=== PATIENT | female | born 1945 | race Caucasian/White ===

== ENCOUNTER 2020-11-27 23:04 | Inpatient (IN) ==
[2020-11-27] MEDS ORDERED: fentaNYL CITRATE/PF 50 MCG/ML AMPUL IV ONE (23:08)
[2020-11-27 23:24] LABS: Anion Gap 11.1 mmol/L (6.8-13.8); BUN/Creatinine Ratio 18.3 (9.0-21.6); Calcium * 8.9 mg/dL (7.9-10.9); Carbon Dioxide 29.1 mmol/L (24-32.6); Estimated Creat Clear 22.7; Potassium 3.2 mmol/L (3.4-4.6)
[2020-11-27 23:25] LABS: Prothrombin Time (Patient) 18.7 Seconds (9.1-10.7)
[2020-11-27 23:26] LABS: Hematocrit 34.6 % (37.0-47.0); Hemoglobin 10.9 gm/dL (12.5-16.0); INR 1.94 INR (0.92-1.08); Mean Cell Volume 89.9 fl (78-100); Mean Corpuscular Hemoglobin 28.3 pg (27-31); Mean Corpuscular Hgb Conc 31.5 g/dl (32-36); Mean Platelet Volume 8.7 fl (8-12.5); Neutrophil # 6.2 K/mm3 (1.3-6.0); Neutrophil % 70.6 % (42-75.0); Platelet Count 288 K/mm3 (150-450); Red Blood Count 3.85 M/mm3 (4.2-5.4); Red Cell Distribution Width 14.5 % (11.5-14.0); White Blood Count 8.8 K/mm3 (4.0-10.5)
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
[2020-11-27] MEDS ORDERED: HYDROmorphone HCL 1 MG/ML DISP.SYRIN IV ONE (23:47)
[2020-11-28] MEDS: RINGER'S SOLUTION,LACTATED 1,000 ML IV PRN ×3 (02:27→15:50)
[2020-11-28] MEDS: HYDROmorphone HCL 1 MG/ML DISP.SYRIN IV PRN ×8 (02:28→14:13)
[2020-11-28] MEDS ORDERED: TRANEXAMIC ACID 1,000 MG in NORMAL SALINE 100 ML IV PRN (06:00)
[2020-11-28] MEDS ORDERED: CLINDAMYCIN IN 0.9 % SOD CHLOR 900 MG/50 ML BAG IV PRN (06:00)
--- NOTE | 2020-11-28 09:25 | ANES ---
Anesthesia Pre Procedure Eval Vitals/Labs: Last Vital Signs Temp 37.3 C 11/28/20 08:36 Pulse 80 11/28/20 08:36 Resp 16 11/28/20 08:36 BP 136/80 11/28/20 08:36 Pulse Ox 95 11/28/20 08:36 HOME MEDICATIONS ascorbic acid (vitamin C) 500 mg tablet 500 mg PO DAILY 02/11/19 [Last Taken Unknown] cholecalciferol (vitamin D3) 25 mcg (1,000 unit) tablet 1,000 unit PO DAILY 02/11/19 [Last Taken Unknown] ferrous gluconate 324 mg (38 mg iron) tablet 324 mg PO DAILY 02/11/19 [Last Taken Unknown] warfarin 4 mg tablet 4 mg PO .QSUNDAY tab 02/11/19 [Last Taken 11/27/20 21:00] magnesium 250 mg tablet 250 mg PO BID tab 10/23/19 [Last Taken Unknown] Bifidobacterium infantis 4 mg capsule 4 mg PO DAILY 03/15/20 [Last Taken Unknown] calcium carbonate-vitamin D3 500 mg (1,250 mg)-600 unit tablet 1 tab PO DAILY tab 03/15/20 [Last Taken Unknown] warfarin 3 mg tablet 3 mg PO DAILY #90 tab 07/01/20 [Last Taken 11/26/20 21:00] amlodipine 2.5 mg tablet 2.5 mg PO DAILY #90 tab 08/04/20 [Last Taken Unknown] simvastatin 20 mg tablet 20 mg PO HS #90 tab 08/04/20 [Last Taken Unknown] Allergies/Adverse Reactions: Allergies Allergy/AdvReac Type Severity Reaction Status Date / Time propoxyphene Allergy cardiac Verified 11/27/20 23:14 arrhythmia and hives codeine AdvReac Unknown Hives Verified 11/27/20 23:14 nitrofurantoin AdvReac Unknown flushed Verified 11/27/20 23:14 skin cephalexin AdvReac palpitation Verified 11/27/20 23:14 s hydralazine AdvReac palpitation Verified 11/27/20 23:14 s hydrocodone AdvReac palpiitatio Verified 11/27/20 23:14 [From Lorcet (hydrocodone)] ns methylprednisolone AdvReac palpitation Verified 11/27/20 23:14 s oxycodone AdvReac palpitation Verified 11/27/20 23:14 s prednisone AdvReac palpitation Verified 11/27/20 23:14 s procaine AdvReac palpitation Verified 11/27/20 23:14 s sulfamethoxazole AdvReac palpitation Verified 11/27/20 23:14 [From Bactrim] s tegaserod AdvReac Diarrhea, Verified 11/27/20 23:14 flushing, and dry mouth tolterodine AdvReac nausea & Verified 11/27/20 23:14 vomiting trimethoprim [From Bactrim] AdvReac palpitation Verified 11/27/20 23:14 s Novacaine AdvReac palpitation Uncoded 11/27/20 23:14 s - Planned Procedure Planned Procedure: L hip Fracture Medication List Reviewed:: Yes Allergies Verified: Yes Medical History (Last Reviewed 11/28/20 @ 09:21 by Min Santana CRNA) Acute streptococcal pharyngitis (Acute) Hypertension (Chronic) History of pulmonary embolus (PE) (Chronic) CKD (chronic kidney disease) stage 3, GFR 30-59 ml/min (Chronic) Prediabetes (Chronic) Sacroiliac joint pain (Chronic) Muscle strain of right gluteal region (Chronic) Right hip pain Onset Date: ~2018 Anemia Onset Date: Unknown Anxiety Onset Date: Unknown Carpal tunnel syndrome Onset Date: Unknown Chronic kidney disease Onset Date: Unknown Generalized osteoarthritis Onset Date: Unknown Hyperlipidemia Onset Date: Unknown Hypertension Onset Date: Unknown Hypothyroid Onset Date: Unknown Kidney disease Onset Date: Unknown Polymyalgia rheumatica Onset Date: Unknown History of bone density study Onset Date: ~2015 History of mammogram Onset Date: ~2017 History of pulmonary embolus (PE) Onset Date: ~2016 Surgical History (Last Reviewed 11/28/20 @ 09:22 by Min Santana CRNA) H/O knee surgery Onset Date: ~1991 right knee 1992;1999 H/O spinal fusion Onset Date: ~12/27/03 cervical History of carpal tunnel surgery of right wrist Onset Date: Unknown History of colonoscopy Onset Date: ~2004 History of shoulder surgery Onset Date: ~2014 excision of lipoma of shoulder Hx of arthroscopic knee surgery Onset Date: Unknown Family History (Last Reviewed 11/28/20 @ 09:22 by Min Santana CRNA) Brother Prostate cancer Heart disease Myocardial infarction Cancer unknown origin Mother Heart disease Hypertension CVA (cerebral vascular accident) Grandmother Diabetes Grandfather No problems noted. Father Heart disease - Family Anesthesia History Family History:: no untoward family reactions to anesthesia, no familial bleeding tendencies, no family history of clotting disorders, no family history of premature - Airway/Neck/Teeth Denture Type: Partial upper Neck Exam: limited range of motion Mallampatti Score: 3 - poor range of motion (cervical fusion) Thyromental (T-M) distance: > 6 cm Mandibulo Hyoid distance: > 3 cm - Respiratory Respiratory History: other - Hx PE Smoking Status: Never smoker Sleep Apnea currently treated: No Sleep Apnea by current assessment: No - Cardiovascular Cardiac History: hypertension, hyperlipidemia Tolerate Activity: Fair - doesnt remember falling, etiology unknown Heart Sounds: S1 & S2, Regular - Gastrointestinal NPO since: 2400 - Anesthesia Assessment and Plan ASA Class: PS, III Anesthesia Type Plan: General LMA - ETT if lateral
--- NOTE | 2020-11-28 10:38 | HP ---
Chief Complaint - Chief Complaint Date of Service: 11/28/20 Time of Service: 08:45 Chief Complaint: Left hip pain History of Present Illness: 75-year-old female with a past medical history of CKD 3, osteoarthritis, PE on warfarin, hypertension, hyperlipidemia, hypothyroidism, polymyalgia rheumatica, prediabetes presents from home status post syncopal episode with fall. She states several weeks ago she blacked out while sitting in a chair and landed on the floor. Her picked her up. Last night she was walking from one room to another and blacked out again. She hit her head. She does not remember what happened. She denied any prodrome such as lightheadedness, dizziness, or palpitations. She states she has never had anything like this happen to her in the past. Her brought her to the emergency room and she presented to the emergency room. CT head showed no acute intracranial abnormality. X-ray of her femur showed an acute displaced left femoral neck fracture. She was admitted for left hip fracture. Medical History (Last Reviewed 11/28/20 @ 09:21 by Min Santana CRNA) Acute streptococcal pharyngitis (Acute) Hypertension (Chronic) History of pulmonary embolus (PE) (Chronic) CKD (chronic kidney disease) stage 3, GFR 30-59 ml/min (Chronic) Prediabetes (Chronic) Sacroiliac joint pain (Chronic) Muscle strain of right gluteal region (Chronic) Right hip pain Onset Date: ~2018 Anemia Onset Date: Unknown Anxiety Onset Date: Unknown Carpal tunnel syndrome Onset Date: Unknown Chronic kidney disease Onset Date: Unknown Generalized osteoarthritis Onset Date: Unknown Hyperlipidemia Onset Date: Unknown Hypertension Onset Date: Unknown Hypothyroid Onset Date: Unknown Kidney disease Onset Date: Unknown Polymyalgia rheumatica Onset Date: Unknown History of bone density study Onset Date: ~2015 History of mammogram Onset Date: ~2017 History of pulmonary embolus (PE) Onset Date: ~2016 Surgical History: Surgical History (Last Reviewed 11/28/20 @ 09:22 by Min Santana CRNA) H/O knee surgery Onset Date: ~1991 right knee 1991;1999 H/O spinal fusion Onset Date: ~12/27/03 cervical History of carpal tunnel surgery of right wrist Onset Date: Unknown History of colonoscopy Onset Date: ~2004 History of shoulder surgery Onset Date: ~2014 excision of lipoma of shoulder Hx of arthroscopic knee surgery Onset Date: Unknown Family History: Family History (Last Reviewed 11/28/20 @ 09:22 by Min Santana CRNA) Brother Prostate cancer Heart disease Myocardial infarction Cancer unknown origin Mother Heart disease Hypertension CVA (cerebral vascular accident) Grandmother Diabetes Grandfather No problems noted. Father Heart disease Social History: (Last Reviewed 11/28/20 @ 03:10 by Brigitte Sullivan RN) Social History: detention: No Marital status: lives independently: No household members: spouse number of children: 2 current occupational status: retired current occupation: retired Highest level of school completed/degree received: high school graduate Service: No Tobacco: Smoking Status: Never smoker second hand exposure: No Alcohol: alcohol intake: never Substance Use: substance use type: does not use Dietary Habits: caffeine: No Exercise: Physical activity functional status: normal ROM and activity Review Of Systems (GEN) - Review of Systems Generalized/Overall Review: Absent: Fever Respiratory: Absent: Shortness of Breath Cardiac: Absent: Chest Pain, Palpitations Abdominal: Absent: Abdominal Pain Musculoskeletal: Present: Joint Pain - Left hip Neurological: Present: Other - Dizziness Misc: All systems neg except as marked Immunizations: IMMUNIZATION HX Immunizations Up to Date Yes History of Influenza Vaccine Yes Hx Pneumococcal Vaccination Yes Allergies/Adverse Reactions: Allergies Allergy/AdvReac Type Severity Reaction Status Date / Time propoxyphene Allergy cardiac Verified 11/27/20 23:14 arrhythmia and hives codeine AdvReac Unknown Hives Verified 11/27/20 23:14 nitrofurantoin AdvReac Unknown flushed Verified 11/27/20 23:14 skin cephalexin AdvReac palpitation Verified 11/27/20 23:14 s hydralazine AdvReac palpitation Verified 11/27/20 23:14 s hydrocodone AdvReac palpiitatio Verified 11/27/20 23:14 [From Lorcet (hydrocodone)] ns methylprednisolone AdvReac palpitation Verified 11/27/20 23:14 s oxycodone AdvReac palpitation Verified 11/27/20 23:14 s prednisone AdvReac palpitation Verified 11/27/20 23:14 s procaine AdvReac palpitation Verified 11/27/20 23:14 s sulfamethoxazole AdvReac palpitation Verified 11/27/20 23:14 [From Bactrim] s tegaserod AdvReac Diarrhea, Verified 11/27/20 23:14 flushing, and dry mouth tolterodine AdvReac nausea & Verified 11/27/20 23:14 vomiting trimethoprim [From Bactrim] AdvReac palpitation Verified 11/27/20 23:14 s Novacaine AdvReac palpitation Uncoded 11/27/20 23:14 s Home Medications: HOME MEDICATIONS ascorbic acid (vitamin C) 500 mg tablet 500 mg PO DAILY 02/11/19 [Last Taken Unknown] cholecalciferol (vitamin D3) 25 mcg (1,000 unit) tablet 1,000 unit PO DAILY 02/11/19 [Last Taken Unknown] ferrous gluconate 324 mg (38 mg iron) tablet 324 mg PO DAILY 02/11/19 [Last Taken Unknown] warfarin 4 mg tablet 4 mg PO .QSUNDAY tab 02/11/19 [Last Taken 11/27/20 21:00] magnesium 250 mg tablet 250 mg PO BID tab 10/23/19 [Last Taken Unknown] Bifidobacterium infantis 4 mg capsule 4 mg PO DAILY 03/15/20 [Last Taken Unknown] calcium carbonate-vitamin D3 500 mg (1,250 mg)-600 unit tablet 1 tab PO DAILY tab 03/15/20 [Last Taken Unknown] warfarin 3 mg tablet 3 mg PO DAILY #90 tab 07/01/20 [Last Taken 11/26/20 21:00] amlodipine 2.5 mg tablet 2.5 mg PO DAILY #90 tab 08/04/20 [Last Taken Unknown] simvastatin 20 mg tablet 20 mg PO HS #90 tab 08/04/20 [Last Taken Unknown] Exam - Exam Vital Signs: Vital Signs - Last Taken Temp 37.5 C 11/28/20 10:19 Pulse 89 11/28/20 10:19 Resp 16 11/28/20 10:19 BP 138/55 11/28/20 10:19 Pulse Ox 96 11/28/20 10:19 Constitutional: Present: Alert, Cooperative, Well developed, Well nourished, No distress, Elderly ENT Exam: Present: hearing grossly normal, moist mucous membranes Eye Exam: bilateral eye: normal inspection, EOMI Neck: Present: non-tender, supple. Absent: lymphadenopathy (R), lymphadenopathy (L) Respiratory: Present: lungs clear, no respiratory distress, no accessory muscle use, No wheezing. Absent: crackles, rhonchi Cardiovascular/Chest: Present: normal peripheral pulses, regular rate, rhythm, no edema, no murmur Peripheral Pulses: dorsalis-pedis (R): 1+, dorsalis-pedis (L): 1+ Abdomen: Present: Normal bowel sounds, soft, nontender /Rectal: Present: Other - Dias catheter in place Extremity: Present: no pedal edema Skin Exam: Present: normal color, warm/dry Neurologic: Present: alert, normal mood/affect Appearance: Present: appropriate appearance, appropriate insight Eye contact: Present: cooperative, good eye contact Thoughts: Present: normal thought pattern, normal mood /affect Diagnostic Studies: Abnormal Lab Results 11/27/20 11/27/20 11/27/20 Range/Units 23:05 23:05 23:05 RBC 3.85 L (4.2-5.4) M/mm3 Hgb 10.9 L (12.5-16.0) gm/dL Hct 34.6 L (37.0-47.0) % MCHC 31.5 L (32-36) g/dl RDW 14.5 H (11.5-14.0) % Immature Gran % (Auto) 0.90 H (0.001-0.429) % Immature Gran # (Auto) 0.08 H (0.000-0.0310) K/mm3 Lymphocytes % 18.5 L (20-51) % Neutrophils # 6.2 H (1.3-6.0) K/mm3 PT 18.7 H (9.1-10.7) Seconds INR (Anticoag Therapy) 1.94 H (0.92-1.08) INR Potassium 3.2 L (3.4-4.6) mmol/L BUN 30 H (3-23) mg/dL Creatinine 1.64 H (0.4-1.4) mg/dL Est GFR (Non-Af Amer) 32 L (60-130) mL/min Random Glucose 174 H (70-110) mg/dL Laboratory Results WBC 8.8 K/mm3 (4.0-10.5) 11/27/20 23:05 RBC 3.85 M/mm3 (4.2-5.4) L 11/27/20 23:05 Hgb 10.9 gm/dL (12.5-16.0) L 11/27/20 23:05 Hct 34.6 % (37.0-47.0) L 11/27/20 23:05 MCV 89.9 fl (78-100) 11/27/20 23:05 MCH 28.3 pg (27-31) 11/27/20 23:05 MCHC 31.5 g/dl (32-36) L 11/27/20 23:05 RDW 14.5 % (11.5-14.0) H 11/27/20 23:05 Plt Count 288 K/mm3 (150-450) 11/27/20 23:05 MPV 8.7 fl (8-12.5) 11/27/20 23:05 Immature Gran % (Auto) 0.90 % (0.001-0.429) H 11/27/20 23:05 Immature Gran # (Auto) 0.08 K/mm3 (0.000-0.0310) H 11/27/20 23:05 Neutrophils % 70.6 % (42-75.0) 11/27/20 23:05 Lymphocytes % 18.5 % (20-51) L 11/27/20 23:05 Monocytes % 7.9 % (0.0-9) 11/27/20 23:05 Eosinophils % 1.3 % (0.0-3.0) 11/27/20 23:05 Basophils % 0.8 % (0.0-1.0) 11/27/20 23:05 Nucleated RBC % 0.0 k/mm3 (0-1) 11/27/20 23:05 Neutrophils # 6.2 K/mm3 (1.3-6.0) H 11/27/20 23:05 Lymphocytes # 1.62 k/mm3 (1.5-3.5) 11/27/20 23:05 Monocytes # 0.7 k/mm3 (0.0-1.0) 11/27/20 23:05 Eosinophils # 0.1 k/mm3 (0.0-0.7) 11/27/20 23:05 Absolute Basophils 0.1 k/mm3 (0.0-0.1) 11/27/20 23:05 PT 18.7 Seconds (9.1-10.7) H 11/27/20 23:05 INR (Anticoag Therapy) 1.94 INR (0.92-1.08) H 11/27/20 23:05 Sodium 138 mmol/L (132-142) 11/27/20 23:05 Plasma Sodium 139 mmol/L (130-142) 11/27/20 23:05 Potassium 3.2 mmol/L (3.4-4.6) L 11/27/20 23:05 Chloride 101 mmol/L (97-106) 11/27/20 23:05 Carbon Dioxide 29.1 mmol/L (24-32.6) 11/27/20 23:05 Anion Gap 11.1 mmol/L (6.8-13.8) 11/27/20 23:05 BUN 30 mg/dL (3-23) H 11/27/20 23:05 Creatinine 1.64 mg/dL (0.4-1.4) H 11/27/20 23:05 Est GFR (Non-Af Amer) 32 mL/min (60-130) L 11/27/20 23:05 BUN/Creatinine Ratio 18.3 (9.0-21.6) 11/27/20 23:05 Random Glucose 174 mg/dL (70-110) H 11/27/20 23:05 Calcium 8.9 mg/dL (7.9-10.9) 11/27/20 23:05 SARS-CoV-2 (PCR) Not detected (NotDetected) 11/28/20 00:10 Assessment/Plan - Narrative Narrative: 75-year-old female with a past medical history of CKD 3, osteoarthritis, PE on warfarin, hypertension, hyperlipidemia, hypothyroidism, polymyalgia rheumatica, prediabetes presents from home status post syncopal episode with fall. She states several weeks ago she blacked out while sitting in a chair and landed on the floor. Her picked her up. Last night she was walking from one room to another and blacked out again. She hit her head. She does not remember what happened. She denied any prodrome such as lightheadedness, dizziness, or palpitations. She states she has never had anything like this happen to her in the past. Her brought her to the emergency room and she presented to the emergency room. CT head showed no acute intracranial abnormality. X-ray of her femur showed an acute displaced left femoral neck fracture. She was admitted for left hip fracture. She denies chest pain, shortness of breath, palpitations or dizziness. She is medically cleared for repair of her left femur fracture. Plan #1 continue with pain management #2 orthopedics following and plans to take her to the OR this afternoon. #3 CBC and CMP in the morning #4 resume home medications after the procedure. - Assessment/Plan (1) Hip fracture Problem: Acute Qualifiers: Encounter type: initial encounter Fracture type: closed Laterality: left Qualified Code(s): S72.002A - Fracture of unspecified part of neck of left femur, initial encounter for closed fracture (2) Hypertension Problem: Chronic Qualifiers: (3) History of pulmonary embolus (PE) Problem: Chronic (4) CKD (chronic kidney disease) stage 3, GFR 30-59 ml/min Problem: Chronic (5) Prediabetes Problem: Chronic (6) HLD (hyperlipidemia) Problem: Acute
--- NOTE | 2020-11-28 11:38 | CONS ---
- Reason for consultation (1) Hip fracture Date of Service: 11/28/20 HPI - General Date of Service: 11/28/20 Narrative: 75-year-old female presents status post a fall with left hip pain. Past medical history includes chronic kidney disease, hypertension, pulmonary embolus. Patient is a chronic user of warfarin due to PE. Patient notes she has significant left hip pain at this time. She notes status post a fall she immediately had left hip pain. She notes in the ED they found a hip fracture. Patient was admitted to the medicine team. She notes at this time her pain continues to be moderate. She notes she has significant pain that increased with movement better with rest. However she has significant uncomfortability due to any motion. Patient notes she has been given IV pain medication for relief. She denies any other medications at this time for pain. She denies any other significant radiating or modifying factors. Source: patient Exam Limitations: no limitations - History of Present Illness Allergies/Adverse Reactions: Allergies propoxyphene Allergy (Verified 11/27/20 23:14) cardiac arrhythmia and hives codeine Adverse Reaction (Unknown, Verified 11/27/20 23:14) Hives palpitations, hives, tremors nitrofurantoin Adverse Reaction (Unknown, Verified 11/27/20 23:14) flushed skin cephalexin Adverse Reaction (Verified 11/27/20 23:14) palpitations hydralazine Adverse Reaction (Verified 11/27/20 23:14) palpitations hydrocodone [From Lorcet (hydrocodone)] Adverse Reaction (Verified 11/27/20 23:14) palpiitations methylprednisolone Adverse Reaction (Verified 11/27/20 23:14) palpitations oxycodone Adverse Reaction (Verified 11/27/20 23:14) palpitations prednisone Adverse Reaction (Verified 11/27/20 23:14) palpitations procaine Adverse Reaction (Verified 11/27/20 23:14) palpitations sulfamethoxazole [From Bactrim] Adverse Reaction (Verified 11/27/20 23:14) palpitations tegaserod Adverse Reaction (Verified 11/27/20 23:14) Diarrhea, flushing, and dry mouth tolterodine Adverse Reaction (Verified 11/27/20 23:14) nausea & vomiting trimethoprim [From Bactrim] Adverse Reaction (Verified 11/27/20 23:14) palpitations Novacaine Adverse Reaction (Uncoded 11/27/20 23:14) palpitations Home Medications: Home Medications Medication Instructions Recorded Last Taken ascorbic acid (vitamin C) 500 mg 500 mg PO DAILY 02/11/19 Unknown tablet cholecalciferol (vitamin D3) 25 1,000 unit PO DAILY 02/11/19 Unknown mcg (1,000 unit) tablet ferrous gluconate 324 mg (38 mg 324 mg PO DAILY 02/11/19 Unknown iron) tablet warfarin 4 mg tablet 4 mg PO .QSUNDAY tab 02/11/19 11/27/20 21:00 magnesium 250 mg tablet 250 mg PO BID tab 10/23/19 Unknown Bifidobacterium infantis 4 mg 4 mg PO DAILY 03/15/20 Unknown capsule calcium carbonate-vitamin D3 500 1 tab PO DAILY tab 03/15/20 Unknown mg (1,250 mg)-600 unit tablet warfarin 3 mg tablet 3 mg PO DAILY #90 tab 07/01/20 11/26/20 21:00 amlodipine 2.5 mg tablet 2.5 mg PO DAILY #90 tab 08/04/20 Unknown simvastatin 20 mg tablet 20 mg PO HS #90 tab 08/04/20 Unknown Procedures Excision of semilunar cartilage of knee (03/20/02) Injection of anesthetic into spinal canal for analgesia (12/22/02) Injection of other agent into spinal canal (12/22/02) Injection of steroid (12/22/02) Release of carpal tunnel (02/14/01) Medications - Medications Current Medications: Current Medications Hydromorphone HCl (Hydromorphone Hcl 1 Mg/Ml Disp.Syrin) 0.5 mg IV Q15M PRN PRN Reason: Pain Stop: 12/28/20 02:04 Last Admin: 11/28/20 09:36 Dose: 0.5 mg Documented by: Lactated Ringer's (Lactated Ringers) 1,000 mls @ 125 mls/hr IV .Q8H PRN PRN Reason: HYDRATION Stop: 12/28/20 01:10 Last Admin: 11/28/20 10:34 Dose: 125 mls/hr Documented by: Review of Systems - Review of Systems Generalized/Overall Review: Present: No Symptoms Reported EENTM: Present: No Symptoms Reported Respiratory: Present: No Symptoms Reported Cardiac: Present: No Symptoms Reported Abdominal: Present: No Symptoms Reported Musculoskeletal: Present: Joint Pain - See HPI Neurological: Absent: Numbness, Tingling, Weakness Endocrine: Present: No Symptoms Reported Physical Examination - Exam Vital Signs: Vital Signs - Last Taken Temp 37.5 C 11/28/20 10:19 Pulse 89 11/28/20 10:19 Resp 16 11/28/20 10:19 BP 138/55 11/28/20 10:19 Pulse Ox 96 11/28/20 10:19 O2 Oxygen Delivery Method Room Air Constitutional: Present: Alert, Oriented x3, Cooperative, Mild distress Respiratory: Present: no respiratory distress Extremity: Present: other - Left lower extremity--> diffuse moderate tenderness of left hip, no obvious wounds, mild external rotation of left lower extremity, sensation tact light touch, capillary refill brisk, pain with any active range of motion, 5/5 plantar flexion/dorsiflexion ankle Skin Exam: Present: normal color, warm/dry Eye contact: Present: cooperative, good eye contact Thoughts: Present: normal thought pattern - Results and Findings: Lab/Microbiology results last 24 hrs: Abnormal/Pending Laboratory Last 24 HRS 11/27/20 11/27/20 11/27/20 23:05 23:05 23:05 RBC 3.85 L Hgb 10.9 L Hct 34.6 L MCHC 31.5 L RDW 14.5 H Immature Gran % (Auto) 0.90 H Immature Gran # (Auto) 0.08 H Lymphocytes % 18.5 L Neutrophils # 6.2 H PT 18.7 H INR (Anticoag Therapy) 1.94 H Potassium 3.2 L BUN 30 H Creatinine 1.64 H Est GFR (Non-Af Amer) 32 L Random Glucose 174 H - Assessments/Findings (1) Hip fracture Problem: Acute Qualifiers: Encounter type: initial encounter Fracture type: closed Laterality: left Qualified Code(s): S72.002A - Fracture of unspecified part of neck of left femur, initial encounter for closed fracture Plan - Plan Plan: -75-year-old female presents status post a fall with a left femoral neck fracture. Discussed with patient conservative or surgical intervention as well as risk versus benefits including but not limited to infection, bleeding, DVT risk, PE risk, cardiac and stroke risk, implant failure, continued pain, weakness, inherent risk of surgery. Patient expressed understanding wishes to proceed with surgical intervention. Consent was obtained for a left cemented hemiarthroplasty. Discussed the patient should would continue in the hospital postoperatively. Will monitor for postoperative complications. Patient has been evaluated by the medical team at this time a history and physical has been completed. Patient expressed understanding to these options in this treatment plan. She agreed to proceed. We will continue to monitor patient with plan for surgical intervention on 11/28/[address] Yates.
[2020-11-28 12:01] LABS: INR 2.19 INR (0.92-1.08)
[2020-11-28] MEDS ORDERED: fentaNYL CITRATE/PF 50 MCG/ML AMPUL ONE (14:11)
[2020-11-28] MEDS ORDERED: LIDOCAINE HCL 20 ML VIAL ONE (14:11)
[2020-11-28] MEDS ORDERED: PROPOFOL VIAL IV ONE (14:11)
[2020-11-28] MEDS ORDERED: ONDANSETRON HCL/PF 2 MG/ML VIAL ONE (14:11)
[2020-11-28] MEDS ORDERED: SUCCINYLCHOLINE CHLORIDE 20 MG/ML VIAL ONE (14:12)
[2020-11-28] MEDS ORDERED: ROCURONIUM BROMIDE 10 MG/ML VIAL ONE (14:12)
[2020-11-28] MEDS ORDERED: ONDANSETRON HCL/PF 2 MG/ML VIAL IV PRN (16:45)
[2020-11-28] MEDS ORDERED: MAGNESIUM HYDROXIDE 30 ML UDC PO PRN (16:45)
[2020-11-28] MEDS ORDERED: MAG HYDROX/ALUMINUM HYD/SIMETH 30 ML UDC PO PRN (16:45)
--- NOTE | 2020-11-28 16:45 | OR ---
Operative Report - Dictated Report Narrative: Date: 11/28/2020 Preoperative diagnosis: Closed left displaced femoral neck fracture with hip degenerative joint disease. Postoperative diagnosis: Closed left displaced femoral neck fracture with hip degenerative joint disease. Procedure: Left total hip arthroplasty. Surgeon: Alex Yates M.D. Md Ophthalmologist: Spencer Zarate PA-C (provided an essential set of skilled, educated and assisted with transfer, positioning, prepping, draping, manipulation, traction, irrigation, suturing, and placement of dressings all of which cannot be performed by the available surgical crew) Anesthesia: General Complications: None Specimens: Bone. Estimated blood loss: 150 milliliters. Retained implants: Depuy Dent size 4 femoral stem standard offset. Size 48 millimeter outside diameter 3-hole Cortez Gription acetabular cup. 48 millimeter outside by 32 millimeter inside diameter highly cross-linked acetabular liner. 32 millimeter diameter + 1 millimeter cobalt chromium femoral head. Cancellous 6.5mm screw 30 millimeter length Indications: Mrs. Dixon is a 75-year-old female who fell at home resulting in a closed displaced left femoral neck fracture. She had underlying hip arthrosis and is seeking treatment in the past for hip pain. We discussed surgical options of hemiarthroplasty versus total hip arthroplasty and based on her history as well as her activity level we elected to undergo total hip arthroplasty. Patient wished to proceed with surgical treatment. The risks, benefits, and alternatives were discussed in her room. The risks of , blood clots, bleeding, infection, nerve/tendon blood vessel/ injury, malposition of components, dislocation and/or instability of joint, intraoperative fracture, postoperative limited range of motion, persistent pain, failure of components, and need for additional procedures. Patient wished to proceed. Consent was obtained after answering all questions. Procedure: After marking the correct extremity on the floor, the patient was taken to the operating room. A timeout was performed. IV antibiotics consisting of Ancef were administered prior to the procedure. A general anesthetic was induced by anesthesia. A Dias catheter was already in place. The patient was then transitioned to a lateral position on a well-padded pegboard. An axillary roll was placed. The head was in neutral position. The non-operative down leg was well-padded with SCD and RAMA hose in place. The arms were supported and padded to protect from any undue pressure on the bony prominences and nerves. A well-padded anterior and posterior pelvic and chest posts were secured in order to maintain a stable position of the pelvis. This was placed so that the pelvis was perpendicular to the floor. The body was in line with the pelvis. Once it was felt that we had protected all the bony prominences and the patient was well secured with a safety belt as well, the leg was pre-scrubbed with alcohol, prepped and draped in a standard sterile fashion. A standard anterior lateral hip incision was marked out over the greater trochanter. Ioban drapes were then placed. The skin incision was then made. Sharp dissection with a scalpel utilizing cautery for hemostasis was carried out down to the gluteus and iliotibial band fascia. This was split in line with the skin incision. The greater trochanter bursa was excised. The anterior and posterior margins of the abductor tendon were identified. The anterior 1/2-1/3 of the tendon was tagged and reflected off the greater trochanter leaving a sleeve of tendon for repair at the completion of the case. This exposed the underlying hip joint capsule. An inverted T-type capsulotomy was made extending this up to the brim of the acetabulum. Using Homans to assist with elevation of the soft tissues off the anterior, superior, and inferior aspects of the femoral neck, the hip was then placed in a figure 4 position. With the leg in an externally rotated and adducted position, the cutting flag was utilized in order to ange for a standard femoral neck cut approximately a fingerbreadth above the level of the lesser trochanter. This was done with reference to pre-operative films and overall alignment. This was done while protecting the surrounding soft tissues with Homans. This resulted in a cleanup cut as the femoral head was displaced and remained in the acetabulum. The femoral head was then removed and sized for guidance on preparation of the ac etabulum. It was noted that there was loss of articular cartilage on both the femoral head and weightbearing portions of the acetabulum. We then returned the leg to the table and turned our attention to the acetabulum. While protecting the surrounding soft tissues, the labrum and remaining tissue in the fovea were excised using a scalpel and cautery. A series of reamers up to size 48 millimeter were utilized to prepare the acetabulum. The final reamer had good purchase and exposed the bleeding subchondral bone. The acetabulum was then thoroughly irrigated ensuring that all bony and cartilaginous materials were removed, and the final acetabular shell was impacted into place. This was placed in approximately 45 degrees of abduction and 20 degrees of anteversion utilizing the outrigger and body axis for alignment. This had a good press fit. 1 6.5mm cancellous screw was placed in the superior posterior quadrant of the acetabulum. The shell was then thoroughly irrigated and the final polyethylene was impacted into place ensuring that it seated completely. This was then protected with a sponge while we returned our attention to the femur. With the leg in a figure 4 position, utilizing Homans for soft tissue protection, a box cutting osteotome, followed by Charnley awl, followed by serial reamers and broaches were utilized in order to prepare the femur. It was found that a size 4 broach gave good axial and rotational stability. The calcar reamer was utilized in order to clean up the cut edges. The proximal femur was visualized to ensure that there were no signs of fracture. A series of heads and necks were trialed. It was found that a standard offset neck and a + 1 femoral head gave good overall stability. There was minimal longitudinal instability. With the leg in the position of sleep, the femoral head was well covered. Hip range of motion was able to reach full extension and external rotation to greater than 75 degrees prior to impingement along the posterior acetabulum. The hip was able to be flexed to greater than 90 degrees with internal rotation greater than 60 degrees prior to anterior impingement. The limb lengths were near equal based on comparison to the contralateral side and the prior placed limb length stitch. At this point it was felt these were the appropriately sized femoral components as well as neck and femoral head. The trial implants were removed. The femur was thoroughly irrigated. The final implants were impacted into place, and the hip was reduced. After ensuring that there was no damage to the proximal femur, the standard periarticular joint injection of ropivacaine, Toradol, and epinephrine were injected into the joint capsule and surrounding soft tissues. Anesthesia then administered intravenous tranexamic acid. The capsule was repaired with a single interrupted #1 Vicryl. The abductor tendon was repaired to the greater trochanter utilizing #5 Ethibond through drill holes. This was oversewn with #1 Vicryl. The fascia was closed with interrupted #1 Vicryl and #1 Stratafix barbed suture. The wounds were thoroughly irrigated as we closed in layers. The deep and subcutaneous fat layers were closed with 0 and 3-0 Vicryl respectively. The subcutaneous tissue was closed with a running 3-0 Vicryl and the skin ashok. All sponge, needle, blade, and instrument counts were correct prior to closing the wounds. Sterile dressings consisting of xeroform, 4 x 4's, and tape were applied. The patient was awoken and transferred to her hospital bed and then to the postanesthesia care unit in st able condition. Postoperative condition: The plan is to admit to the medical/surgical inpatient floor postoperatively. There will be a projected 1 to 3 day hospital stay. Postoperatively 24 hours of IV antibiotics, pain control, physical therapy, occupational therapy, and medical comanagement will be utilized. Patient will be weightbearing as tolerated with anterior hip precautions. Postoperative films will be obtained in the recovery room.
--- NOTE | 2020-11-28 17:05 | ANES ---
Post Anesthesia Discharge - Transfer of Care Transfer of Care handoff given to nurse: Yes - Discharge from PACU Discharge from PACU when meets criteria: Yes
--- NOTE | 2020-11-28 17:39 | ANES ---
Post Anesthesia Assessment - Vital Signs Vitals: Last Vital Signs Temp 36.6 C 11/28/20 17:35 Pulse 80 11/28/20 17:35 Resp 12 11/28/20 17:35 BP 126/54 11/28/20 17:35 Pulse Ox 91 L 11/28/20 17:35 Airway Patency: Normal - Mental Status Level Of Consciousness: Awake, Alert, Appropriate - Pain Level Pain Score: 8 - Dozes off but C/O pain while awake. - N/V Assessment Nausea/Vomiting Presence: None Dehydration:: No
[2020-11-28] MEDS: DEXTROSE 5%-LACTATED RINGERS 1,000 ML IV PRN (17:50)
[2020-11-28] MEDS: HYDROmorphone HCL 2 MG TABLET PO PRN ×2 (18:06→23:23)
[2020-11-28] MEDS: SENNOSIDES/DOCUSATE SODIUM 1 TAB TABLET PO SCH (21:26)
[2020-11-29] MEDS: CLINDAMYCIN IN 0.9 % SOD CHLOR 900 MG/50 ML BAG IV SCH ×2 (00:56→09:44)
[2020-11-29] MEDS: ACETAMINOPHEN 500 MG TABLET PO PRN ×3 (01:05→19:18)
[2020-11-29] MEDS: DEXTROSE 5%-LACTATED RINGERS 1,000 ML IV PRN (02:57)
[2020-11-29] MEDS: HYDROmorphone HCL 2 MG TABLET PO PRN ×4 (05:02→19:36)
[2020-11-29 06:13] LABS: Hemoglobin 8.5 gm/dL (12.5-16.0); Mean Cell Volume 89.4 fl (78-100); Mean Corpuscular Hemoglobin 28.1 pg (27-31); Mean Corpuscular Hgb Conc 31.5 g/dl (32-36); Platelet Count 215 K/mm3 (150-450); Red Blood Count 3.02 M/mm3 (4.2-5.4); Red Cell Distribution Width 14.3 % (11.5-14.0); White Blood Count 10.9 K/mm3 (4.0-10.5)
[2020-11-29 06:16] LABS: Anion Gap 8.1 mmol/L (6.8-13.8); BUN/Creatinine Ratio 11.2 (9.0-21.6); Calcium * 8.2 mg/dL (7.9-10.9); Carbon Dioxide 32.1 mmol/L (24-32.6); Estimated Creat Clear 27.8; Potassium 3.2 mmol/L (3.4-4.6)
[2020-11-29 06:17] LABS: Prothrombin Time (Patient) 25.6 Seconds (9.1-10.7)
[2020-11-29 06:26] LABS: INR 2.69 INR (0.92-1.08)
[2020-11-29] MEDS ORDERED: POTASSIUM BICARBONATE/CIT AC 25 MEQ TABLET.EFF PO ONE ×2 (08:17→09:45)
--- NOTE | 2020-11-29 10:10 | PN ---
Subjective - Date and Time Seen Date: 11/29/20 Time: 08:20 Subjective Narrative: She states she feels better today. She had trouble getting comfortable at night so did not sleep. Pain has improved significantly and is rated a 7 out of 10. Yesterday her pain was rated 10,000 /10. She is tolerating her diet. Dias catheter remains in place. Objective - Review of Systems Generalized/Overall Review: Denies: Fever Respiratory: Denies: Shortness of Breath Cardiac: Denies: Chest Pain Abdominal: Denies: Abdominal Pain Musculoskeletal Complaints: Reports: Joint Pain - Left hip Misc: All systems neg except as marked - Vitals Vitals: Last Vital Signs Temp 37.3 C 11/29/20 07:33 Pulse 76 11/29/20 07:33 Resp 16 11/29/20 07:33 BP 119/56 11/29/20 07:33 Pulse Ox 95 11/29/20 07:33 - Abnormal Lab Findings Abnormal Lab Findings: Abnormal Lab Results 11/28/20 11/29/20 11/29/20 Range/Units 11:48 05:43 05:43 WBC 10.9 H D (4.0-10.5) K/mm3 RBC 3.02 L (4.2-5.4) M/mm3 Hgb 8.5 L (12.5-16.0) gm/dL Hct 27.0 L (37.0-47.0) % MCHC 31.5 L (32-36) g/dl RDW 14.3 H (11.5-14.0) % PT 21.0 H 25.6 H (9.1-10.7) Seconds INR (Anticoag Therapy) 2.19 H 2.69 H (0.92-1.08) INR Potassium (3.4-4.6) mmol/L Est GFR (Non-Af Amer) (60-130) mL/min Random Glucose (70-110) mg/dL 11/29/20 Range/Units 05:43 WBC (4.0-10.5) K/mm3 RBC (4.2-5.4) M/mm3 Hgb (12.5-16.0) gm/dL Hct (37.0-47.0) % MCHC (32-36) g/dl RDW (11.5-14.0) % PT (9.1-10.7) Seconds INR (Anticoag Therapy) (0.92-1.08) INR Potassium 3.2 L (3.4-4.6) mmol/L Est GFR (Non-Af Amer) 41 L D (60-130) mL/min Random Glucose 113 H D (70-110) mg/dL - Exam Constitutional: Present: Alert, Cooperative, Well developed, Well nourished, No distress ENT Exam: Present: hearing grossly normal Neck: Present: non-tender, supple. Absent: lymphadenopathy (R), lymphadenopathy (L) Respiratory: Present: lungs clear, no respiratory distress, no accessory muscle use, No wheezing. Absent: crackles, rhonchi Cardiovascular/Chest: Present: normal peripheral pulses, regular rate, rhythm, no edema, no murmur Abdomen: Present: Normal bowel sounds, soft, nontender Extremity: Absent: lower extremity edema Skin Exam: Present: normal color, warm/dry Neurologic: Present: alert, normal mood/affect Appearance: Present: appropriate appearance, appropriate insight Eye contact: Present: cooperative, good eye contact Thoughts: Present: normal mood /affect Cauti Physician Documentation - Urinary Catheter Management Urethral (Dias) Urethral Indwelling: Yes Reason for Continuing Indwelling Catheter: Surgical Procedure Date of Insertion: 11/28/20 Time of Insertion: 02:00 Assessment/Plan Plan Narrative: 75-year-old female with a past medical history of CKD 3, osteoarthritis, PE on warfarin, hypertension, hyperlipidemia, hypothyroidism, polymyalgia rheumatica, prediabetes presents from home status post syncopal episode with fall. She states several weeks ago she blacked out while sitting in a chair and landed on the floor. Her picked her up. Last night she was walking from one room to another and blacked out again. She hit her head. She does not remember what happened. She denied any prodrome such as lightheadedness, dizziness, or palpitations. She states she has never had anything like this happen to her in the past. Her brought her to the emergency room and she presented to the emergency room. CT head showed no acute intracranial abnormality. X-ray of her femur showed an acute displaced left femoral neck fracture. She was admitted for left hip fracture. She denies chest pain, shortness of breath, palpitations or dizziness. She is medically cleared for repair of her left femur fracture. She is status post left total hip arthroplasty on November 28, 2020, performed by Dr. Yates. She states her pain has improved significantly. Plan #1 continue with pain management #2 orthopedics following #3 CBC and CMP in the morning #4 resume home medications #5 PT - Problems/Diagnosis (1) Hip fracture Problem: Acute Qualifiers: Encounter type: initial encounter Fracture type: closed Laterality: left Qualified Code(s): S72.002A - Fracture of unspecified part of neck of left femur, initial encounter for closed fracture (2) Hypertension Problem: Chronic Qualifiers: (3) History of pulmonary embolus (PE) Problem: Chronic (4) CKD (chronic kidney disease) stage 3, GFR 30-59 ml/min Problem: Chronic (5) Prediabetes Problem: Chronic (6) HLD (hyperlipidemia) Problem: Acute
[2020-11-29] MEDS ORDERED: FERROUS SULFATE 325 MG TABLET PO SCH (10:15)
[2020-11-29] MEDS ORDERED: ASCORBIC ACID 500 MG TABLET PO SCH (10:15)
[2020-11-29] MEDS: CALCIUM CARBONATE/VITAMIN D3 1 TAB TABLET PO SCH (10:32)
[2020-11-29] MEDS: LACTOBACILLUS ACIDOPHILUS 1 EACH CAPSULE PO SCH (10:32)
[2020-11-29] MEDS: amLODIPine BESYLATE 5 MG TABLET PO SCH (10:33)
[2020-11-29] MEDS: CHOLECALCIFEROL 1,000 UNIT CAPSULE PO SCH (10:33)
[2020-11-29] MEDS ORDERED: POTASSIUM CHLORIDE 20 MEQ TABLET.SA PO ONE (15:32)
--- NOTE | 2020-11-29 16:56 | PN ---
Subjective - Date and Time Seen Date: 11/29/20 Time: 16:45 Subjective Narrative: Subjective: Reports some pain. Was able to take a few steps with therapy. Pain is well-controlled. Voiding without any complications. Tolerating by mouth intake. Denies any nausea or vomiting. Denies calf pain. Slept well. Physical exam: Alert and oriented to person, place and time left lower Extremity: Palpable dorsalis pedis pulse. Sensation grossly intact to light touch. Dressings clean and dry. Able to flex and extend ankle and toes. No excessive drainage. Calf and thigh are soft and nontender. Assessment: Postop day 1 status post left total hip arthroplasty. Plan: Continue with physical and occupational therapy weightbearing as tolerated. Continue with anticoagulation. 24 hours postoperative prophylactic antibiotics. Pain control with goal to rely on oral medications. Continue bowel regimen. Will need 6 weeks with walker or assistive device to protect joint while ambulating during the recovery process. Discharge planning. Objective - Vitals Vitals: Last Vital Signs Temp 37.5 C 11/29/20 10:30 Pulse 100 11/29/20 15:58 Resp 12 11/29/20 15:58 BP 148/60 11/29/20 15:58 Pulse Ox 96 11/29/20 15:58 - Abnormal Lab Findings Abnormal Lab Findings: Abnormal Lab Results 11/29/20 11/29/20 11/29/20 Range/Units 05:43 05:43 05:43 WBC 10.9 H D (4.0-10.5) K/mm3 RBC 3.02 L (4.2-5.4) M/mm3 Hgb 8.5 L (12.5-16.0) gm/dL Hct 27.0 L (37.0-47.0) % MCHC 31.5 L (32-36) g/dl RDW 14.3 H (11.5-14.0) % PT 25.6 H (9.1-10.7) Seconds INR (Anticoag Therapy) 2.69 H (0.92-1.08) INR Potassium 3.2 L (3.4-4.6) mmol/L Est GFR (Non-Af Amer) 41 L D (60-130) mL/min Random Glucose 113 H D (70-110) mg/dL Cauti Physician Documentation - Urinary Catheter Management Urethral (Dias) Urethral Indwelling: Yes Date of Insertion: 11/28/20 Time of Insertion: 02:00 Date of Removal: 11/29/20 Time of Removal: 09:00 Assessment/Plan - Problems/Diagnosis (1) Hip fracture Problem: Acute Qualifiers: Encounter type: subsequent encounter Fracture type: closed Laterality: left Fracture healing: with routine healing Qualified Code(s): S72.002D - Fracture of unspecified part of neck of left femur, subsequent encounter for closed fracture with routine healing
[2020-11-29] MEDS: WARFARIN SODIUM 3 MG TABLET PO SCH (17:01)
[2020-11-29] MEDS: FERROUS SULFATE 325 MG TABLET PO SCH (17:35)
[2020-11-29] MEDS: ASCORBIC ACID 500 MG TABLET PO SCH (17:36)
[2020-11-29] MEDS: SIMVASTATIN 20 MG TABLET PO SCH (21:02)
[2020-11-29] MEDS: SENNOSIDES/DOCUSATE SODIUM 1 TAB TABLET PO SCH (21:03)
[2020-11-30] MEDS: HYDROmorphone HCL 2 MG TABLET PO PRN ×4 (01:44→20:47)
[2020-11-30] MEDS: ACETAMINOPHEN 500 MG TABLET PO PRN ×2 (03:51→15:48)
--- NOTE | 2020-11-30 09:06 | PN ---
Subjective - Date and Time Seen Date: 11/30/20 Time: 08:29 Subjective Narrative: She continues to have pain when she attempts to ambulate or transfer out of her bed. She is moving her bowels and urinating. She is tolerating her diet. She states she had a little loose stools this morning. She does not feel ready to go home yet. Objective - Review of Systems Generalized/Overall Review: Denies: Chills, Fever Respiratory: Denies: Shortness of Breath Cardiac: Denies: Chest Pain Abdominal: Denies: Abdominal Pain Musculoskeletal Complaints: Reports: Joint Pain - Left hip Misc: All systems neg except as marked - Vitals Vitals: Last Vital Signs Temp 37.1 C 11/30/20 08:30 Pulse 101 H 11/30/20 08:30 Resp 14 11/30/20 08:30 BP 131/64 11/30/20 08:30 Pulse Ox 94 11/30/20 08:30 - Exam Constitutional: Present: Alert, Cooperative, Well developed, Well nourished, No distress ENT Exam: Present: hearing grossly normal, moist mucous membranes Neck: Present: non-tender. Absent: supple, lymphadenopathy (R), lymphadenopathy (L) Respiratory: Present: lungs clear, normal breath sounds, no respiratory distress, no accessory muscle use, No wheezing. Absent: crackles, rhonchi Cardiovascular/Chest: Present: normal peripheral pulses, regular rate, rhythm, no edema, no murmur Abdomen: Present: Normal bowel sounds, soft, nontender Extremity: Present: no pedal edema Skin Exam: Present: normal color, warm/dry Neurologic: Present: alert, normal mood/affect Appearance: Present: appropriate appearance, appropriate insight Eye contact: Present: cooperative, good eye contact Thoughts: Present: normal thought pattern, normal mood /affect Cauti Physician Documentation - Urinary Catheter Management Urethral (Dias) Urethral Indwelling: No Date of Insertion: 11/28/20 Time of Insertion: 02:00 Date of Removal: 11/29/20 Time of Removal: 09:00 Assessment/Plan Plan Narrative: 75-year-old female with a past medical history of CKD 3, osteoarthritis, PE on warfarin, hypertension, hyperlipidemia, hypothyroidism, polymyalgia rheumatica, prediabetes presents from home status post syncopal episode with fall. She states several weeks ago she blacked out while sitting in a chair and landed on the floor. Her picked her up. Last night she was walking from one room to another and blacked out again. She hit her head. She does not remember what happened. She denied any prodrome such as lightheadedness, dizziness, or palpitations. She states she has never had anything like this happen to her in the past. Her brought her to the emergency room and she presented to the emergency room. CT head showed no acute intracranial abnormality. X-ray of her femur showed an acute displaced left femoral neck fracture. She was admitted for left hip fracture. She denies chest pain, shortness of breath, palpitations or dizziness. She is medically cleared for repair of her left femur fracture. She is status post left total hip arthroplasty on November 28, 2020, performed by Dr. Yates. She states her pain has improved significantly. She has difficulty ambulating secondary to pain. Plan #1 continue with pain management #2 orthopedics following #3 Monitor labs as needed #4 Continue home medications #5 PT - Problems/Diagnosis (1) Hip fracture Problem: Acute Qualifiers: Encounter type: subsequent encounter Fracture type: closed Laterality: left Fracture healing: with routine healing Qualified Code(s): S72.002D - Fracture of unspecified part of neck of left femur, subsequent encounter for closed fracture with routine healing (2) Hypertension Problem: Chronic Qualifiers: Hypertension type: essential hypertension (3) History of pulmonary embolus (PE) Problem: Chronic (4) CKD (chronic kidney disease) stage 3, GFR 30-59 ml/min Problem: Chronic (5) Prediabetes Problem: Chronic (6) HLD (hyperlipidemia) Problem: Acute
[2020-11-30] MEDS: LACTOBACILLUS ACIDOPHILUS 1 EACH CAPSULE PO SCH (09:34)
[2020-11-30] MEDS: CALCIUM CARBONATE/VITAMIN D3 1 TAB TABLET PO SCH (09:34)
[2020-11-30] MEDS: CHOLECALCIFEROL 1,000 UNIT CAPSULE PO SCH (09:34)
[2020-11-30] MEDS: amLODIPine BESYLATE 5 MG TABLET PO SCH (09:34)
[2020-11-30] MEDS ORDERED: MAGNESIUM OXIDE 400 MG TABLET PO SCH (10:00)
[2020-11-30] MEDS: WARFARIN SODIUM 3 MG TABLET PO SCH (17:51)
[2020-11-30] MEDS: FERROUS SULFATE 325 MG TABLET PO SCH (17:51)
[2020-11-30] MEDS: ASCORBIC ACID 500 MG TABLET PO SCH (17:52)
[2020-11-30] MEDS: SIMVASTATIN 20 MG TABLET PO SCH (20:47)
[2020-11-30] MEDS: SENNOSIDES/DOCUSATE SODIUM 1 TAB TABLET PO SCH (20:58)
[2020-12-01] MEDS: ACETAMINOPHEN 500 MG TABLET PO PRN ×4 (00:38→23:00)
[2020-12-01] MEDS: HYDROmorphone HCL 2 MG TABLET PO PRN ×3 (04:11→20:23)
[2020-12-01] MEDS: LACTOBACILLUS ACIDOPHILUS 1 EACH CAPSULE PO SCH (09:13)
[2020-12-01] MEDS: AMLODIPINE BESYLATE 2.5 MG TABLET PO SCH (09:13)
[2020-12-01] MEDS: CHOLECALCIFEROL 1,000 UNIT CAPSULE PO SCH (09:13)
[2020-12-01] MEDS: CALCIUM CARBONATE/VITAMIN D3 1 TAB TABLET PO SCH (09:14)
[2020-12-01] MEDS: MAGNESIUM OXIDE 400 MG TABLET PO SCH ×2 (09:15→14:03)
--- NOTE | 2020-12-01 09:25 | PN ---
Subjective - Date and Time Seen Date: 12/01/20 Time: 08:38 Subjective Narrative: She is doing well. She is tolerating her diet. She was able to ambulate to the bathroom and with physical therapy but had a lot of pain in the left hip. She states Tylenol and Dilaudid helps with her pain. She tries not to use the Dilaudid and prefers to use Tylenol. Objective - Review of Systems Generalized/Overall Review: Denies: Fever Respiratory: Denies: Shortness of Breath Cardiac: Denies: Chest Pain Abdominal: Denies: Abdominal Pain Musculoskeletal Complaints: Reports: Joint Pain - Left hip Misc: All systems neg except as marked - Vitals Vitals: Last Vital Signs Temp 37.0 C 12/01/20 07:18 Pulse 92 12/01/20 07:23 Resp 16 12/01/20 07:18 BP 123/51 12/01/20 07:18 Pulse Ox 96 12/01/20 07:18 - Exam Constitutional: Present: Alert, Cooperative, Well developed, Well nourished, No distress, Elderly ENT Exam: Present: hearing grossly normal Neck: Present: non-tender, supple. Absent: lymphadenopathy (R), lymphadenopathy (L) Respiratory: Present: lungs clear, no respiratory distress, no accessory muscle use, No wheezing. Absent: crackles, rhonchi Cardiovascular/Chest: Present: normal peripheral pulses, regular rate, rhythm, no edema, systolic murmur Abdomen: Present: Normal bowel sounds, soft, nontender Extremity: Present: no pedal edema Skin Exam: Present: normal color, warm/dry Neurologic: Present: alert, normal mood/affect Appearance: Present: appropriate appearance, appropriate insight Eye contact: Present: cooperative Thoughts: Present: normal thought pattern, normal mood /affect Cauti Physician Documentation - Urinary Catheter Management Urethral (Dias) Urethral Indwelling: No Date of Insertion: 11/28/20 Time of Insertion: 02:00 Date of Removal: 11/29/20 Time of Removal: 09:00 Assessment/Plan Plan Narrative: 75-year-old female with a past medical history of CKD 3, osteoarthritis, PE on warfarin, hypertension, hyperlipidemia, hypothyroidism, polymyalgia rheumatica, prediabetes presents from home status post syncopal episode with fall. She states several weeks ago she blacked out while sitting in a chair and landed on the floor. Her picked her up. Last night she was walking from one room to another and blacked out again. She hit her head. She does not remember what happened. She denied any prodrome such as lightheadedness, dizziness, or palpitations. She states she has never had anything like this happen to her in the past. Her brought her to the emergency room and she presented to the emergency room. CT head showed no acute intracranial abnormality. X-ray of her femur showed an acute displaced left femoral neck fracture. She was admitted for left hip fracture. She denies chest pain, shortness of breath, palpitations or dizziness. She is medically cleared for repair of her left femur fracture. She is status post left total hip arthroplasty on November 28, 2020, performed by Dr. Yates. She states her pain has improved significantly. She has pain in the left hip with ambulation. She does not feel comfortable to go home. She may benefit from discharge to rehab. Plan #1 continue with pain management #2 orthopedics following #3 Monitor labs as needed #4 Continue home medications #5 PT - Problems/Diagnosis (1) Hip fracture Problem: Acute Qualifiers: Encounter type: subsequent encounter Fracture type: closed Laterality: left Fracture healing: with routine healing Qualified Code(s): S72.002D - Fracture of unspecified part of neck of left femur, subsequent encounter for closed fracture with routine healing (2) Hypertension Problem: Chronic Qualifiers: Hypertension type: essential hypertension (3) History of pulmonary embolus (PE) Problem: Chronic (4) CKD (chronic kidney disease) stage 3, GFR 30-59 ml/min Problem: Chronic (5) Prediabetes Problem: Chronic (6) HLD (hyperlipidemia) Problem: Acute
--- NOTE | 2020-12-01 11:46 | PN ---
Subjective - Date and Time Seen Date: 12/01/20 Time: 11:44 Subjective Narrative: Subjective: Reports some pain. Was able to walk in the room with therapy. Pain is well-controlled. Voiding without any complications. Tolerating by mouth intake. Denies any nausea or vomiting. Physical exam: Alert and oriented to person, place and time left lower Extremity: Palpable dorsalis pedis pulse. Sensation grossly intact to light touch. Dressings clean and minimal drainage. Able to flex and extend ankle and toes. No excessive drainage. Calf and thigh are soft and nontender. Assessment: Postop day 3 status post left total hip arthroplasty. Plan: Continue with physical and occupational therapy weightbearing as tolerated. Continue with anticoagulation -she will need 7 days of Lovenox at home followed by a daily 325 mg aspirin. Pain control with goal to rely on oral medications. Continue bowel regimen. Will need 6 weeks with walker or assistive device to protect joint while ambulating during the recovery process. Discharge planning -okay to discharge from an orthopedic standpoint. She will follow-up in 2 weeks with orthopedics. Keep the wound dry. Cover with dry gauze and tape as needed. Weightbearing as tolerated with anterior hip precautions. Use a walker. Objective - Vitals Vitals: Last Vital Signs Temp 36.9 C 12/01/20 11:21 Pulse 93 12/01/20 11:21 Resp 15 12/01/20 11:21 BP 133/55 12/01/20 11:21 Pulse Ox 95 12/01/20 11:21 Cauti Physician Documentation - Urinary Catheter Management Urethral (Dias) Urethral Indwelling: No Date of Insertion: 11/28/20 Time of Insertion: 02:00 Date of Removal: 11/29/20 Time of Removal: 09:00 Assessment/Plan - Problems/Diagnosis (1) Hip fracture Problem: Acute Qualifiers: Encounter type: subsequent encounter Fracture type: closed Laterality: left Fracture healing: with routine healing Qualified Code(s): S72.002D - Fracture of unspecified part of neck of left femur, subsequent encounter for closed fracture with routine healing
[2020-12-01] MEDS: WARFARIN SODIUM 3 MG TABLET PO SCH (16:20)
[2020-12-01] MEDS: FERROUS SULFATE 325 MG TABLET PO SCH (18:58)
[2020-12-01] MEDS: ASCORBIC ACID 500 MG TABLET PO SCH (18:59)
[2020-12-01] MEDS: SIMVASTATIN 20 MG TABLET PO SCH (20:21)
[2020-12-01] MEDS: SENNOSIDES/DOCUSATE SODIUM 1 TAB TABLET PO SCH (20:21)
[2020-12-02] MEDS: HYDROmorphone HCL 2 MG TABLET PO PRN ×2 (02:16→12:43)
[2020-12-02] MEDS: ACETAMINOPHEN 500 MG TABLET PO PRN (08:46)
[2020-12-02] MEDS: CALCIUM CARBONATE/VITAMIN D3 1 TAB TABLET PO SCH (08:47)
[2020-12-02] MEDS: AMLODIPINE BESYLATE 2.5 MG TABLET PO SCH (08:47)
[2020-12-02] MEDS: LACTOBACILLUS ACIDOPHILUS 1 EACH CAPSULE PO SCH (08:47)
[2020-12-02] MEDS: CHOLECALCIFEROL 1,000 UNIT CAPSULE PO SCH (08:47)
[2020-12-02] MEDS: MAGNESIUM OXIDE 400 MG TABLET PO SCH (08:47)
[2020-12-02 08:48] LABS: Prothrombin Time (Patient) 30.7 Seconds (9.1-10.7)
[2020-12-02 08:50] LABS: INR 3.12 INR (0.92-1.08)
--- NOTE | 2020-12-02 09:47 | DS ---
(1) Hip fracture Problem: Acute Qualifiers: Encounter type: subsequent encounter Fracture type: closed Laterality: left Fracture healing: with routine healing Qualified Code(s): S72.002D - Fracture of unspecified part of neck of left femur, subsequent encounter for closed fracture with routine healing (2) Hypertension Problem: Chronic Qualifiers: Hypertension type: essential hypertension Qualified Code(s): I10 - Essential (primary) hypertension (3) History of pulmonary embolus (PE) Problem: Chronic (4) CKD (chronic kidney disease) stage 3, GFR 30-59 ml/min Problem: Chronic (5) Prediabetes Problem: Chronic (6) HLD (hyperlipidemia) Problem: Acute Hospital Course: 75-year-old female with a past medical history of CKD 3, osteoarthritis, PE on warfarin, hypertension, hyperlipidemia, hypothyroidism, polymyalgia rheumatica, prediabetes presents from home status post syncopal episode with fall. She states several weeks ago she blacked out while sitting in a chair and landed on the floor. Her picked her up. Last night she was walking from one room to another and blacked out again. She hit her head. She does not remember what happened. She denied any prodrome such as lightheadedness, dizziness, or palpitations. She states she has never had anything like this happen to her in the past. Her brought her to the emergency room and she presented to the emergency room. CT head showed no acute intracranial abnormality. X-ray of her femur showed an acute displaced left femoral neck fracture. She was admitted for left hip fracture. She denies chest pain, shortness of breath, palpitations or dizziness. She is medically cleared for repair of her left femur fracture. She is status post left total hip arthroplasty on November 28, 2020, performed by Dr. Yates. She states her pain has improved significantly. She has pain in the left hip with ambulation but she is pushing through the pain. She would like home health. She is stable to be discharged home today. She will continue with physical therapy via home health. Per Dr. Yates she will need to ambulate with a walker/assistive device for 6 weeks. Rosalba Dixon is confined to the home due to a left total hip arthroplasty. The need for nursing home is for wound care, monitoring of healing, surgery follow-up. The need for physical therapy is for strengthening, endurance, ADL teaching to be safe, gait/balance issues, mobility issues, range of motion and surgery follow-up. Procedures Performed: none List Procedures: Left total hip arthroplasty on November 28, 2020, performed by Dr. Yates Results and Findings: Lab Pending Results 11/27/20 23:05: WBC 8.8, RBC 3.85 L, Hgb 10.9 L, Hct 34.6 L, MCV 89.9, MCH 28.3, MCHC 31.5 L, RDW 14.5 H, Plt Count 288, MPV 8.7, Immature Gran % (Auto) 0.90 H, Immature Gran # (Auto) 0.08 H, Neutrophils % 70.6, Lymphocytes % 18.5 L, Monocytes % 7.9, Eosinophils % 1.3, Basophils % 0.8, Nucleated RBC % 0.0, Neutrophils # 6.2 H, Lymphocytes # 1.62, Monocytes # 0.7, Eosinophils # 0.1, Absolute Basophils 0.1 11/27/20 23:05: PT 18.7 H, INR (Anticoag Therapy) 1.94 H 11/27/20 23:05: Sodium 138, Plasma Sodium 139, Potassium 3.2 L, Chloride 101, Carbon Dioxide 29.1, Anion Gap 11.1, BUN 30 H, Creatinine 1.64 H, Est GFR (Non- Af Amer) 32 L, BUN/Creatinine Ratio 18.3, Random Glucose 174 H, Calcium 8.9 11/28/20 00:10: SARS-CoV-2 (PCR) Not detected 11/28/20 11:48: PT 21.0 H, INR (Anticoag Therapy) 2.19 H 11/29/20 05:43: WBC 10.9 H D, RBC 3.02 L, Hgb 8.5 L, Hct 27.0 L, MCV 89.4, MCH 28.1, MCHC 31.5 L, RDW 14.3 H, Plt Count 215, MPV 9.0 11/29/20 05:43: PT 25.6 H, INR (Anticoag Therapy) 2.69 H 11/29/20 05:43: Sodium 139, Plasma Sodium 139, Potassium 3.2 L, Chloride 102, Carbon Dioxide 32.1, Anion Gap 8.1, BUN 15, Creatinine 1.34, Est GFR (Non-Af Amer) 41 L D, BUN/Creatinine Ratio 11.2, Random Glucose 113 H D, Calcium 8.2 12/02/20 08:35: PT 30.7 H, INR (Anticoag Therapy) 3.12 H Discharge Location: Home Disposition: Home Health Service Home Health Agency: [facility] Home Health Condition: Fair Discharge Activity: Weight bearing - Ambulate with a walker Discharge Diet: General/regular food Referrals: Cony Garibay MD [Primary Care Provider] - Additional Patient Instructions (free text): Follow up appointment with on at 2:15. Follow up appointment with Dr Yates on Saturday at 11:00. [facility] new at discharge- fax discharge summary, orders, and med list and call report. INR blood draws can be called to [facility]. Per Dr. Yates she will need to ambulate with a walker/assistive device for 6 weeks. Prescriptions (Any new or edited meds): HYDROmorphone HCL [Dilaudid] 2 mg PO Q4H PRN #42 tab PRN Reason: Severe Pain (Pain Scale 7-10) Transmission Status: Received by [place], [place] Complete Home Medications List: Complete Home Medication List: ascorbic acid (vitamin C) 500 mg tablet 500 mg PO DAILY 02/11/19 cholecalciferol (vitamin D3) 25 mcg (1,000 unit) tablet 1,000 unit PO DAILY 02/11/19 ferrous gluconate 324 mg (38 mg iron) tablet 324 mg PO DAILY 02/11/19 warfarin 4 mg tablet 4 mg PO .QSUNDAY tab 02/11/19 magnesium 250 mg tablet 250 mg PO BID tab 10/23/19 Bifidobacterium infantis 4 mg capsule 4 mg PO DAILY 03/15/20 calcium carbonate-vitamin D3 500 mg (1,250 mg)-600 unit tablet 1 tab PO DAILY tab 03/15/20 warfarin 3 mg tablet 3 mg PO DAILY #90 tab 07/01/20 amlodipine 2.5 mg tablet 2.5 mg PO DAILY #90 tab 08/04/20 simvastatin 20 mg tablet 20 mg PO HS #90 tab 08/04/20 HYDROmorphone HCL [Dilaudid] 2 mg PO Q4H PRN #42 tab 12/02/20
[2020-12-02 13:41] VITALS: BP 121/88
== END 2020-12-02 13:56 | disposition home health service (06) | DRG 522 ==
LOC: ER 23:04 → MS 11-28 01:21
PROVIDERS: ADMIT Family Medicine; ATTEND Internal Medicine
DX: S72.002A Fracture of unspecified part of neck of left femur, initial encounter for closed fracture; M35.3 Polymyalgia rheumatica; R73.03 Prediabetes; E03.9 Hypothyroidism, unspecified; I12.9 Hypertensive chronic kidney disease with stage 1 through stage 4 chronic kidney disease, or unspecified chronic kidney disease; E78.5 Hyperlipidemia, unspecified; Z86.711 Personal history of pulmonary embolism; N18.30 Chronic kidney disease, stage 3 unspecified; M16.12 Unilateral primary osteoarthritis, left hip; Z79.01 Long term (current) use of anticoagulants; E04.1 Nontoxic single thyroid nodule